=== PATIENT | male | born 1930 | race Caucasian/White ===

== ENCOUNTER 2017-03-30 16:26 | Emergency (ER) | payer MEDICARE, OTHER ==
--- NOTE | 2017-03-30 18:00 | CT Preliminary Report ---
Exam: CT Head W/O IMPRESSION: 1. Stable age-related cortical atrophic changes without evidence of acute intracranial abnormality or skull fracture. 2. Opacified right mastoid air cells noted. [facility] SITE ID: [id number]
--- NOTE | 2017-03-30 18:02 | CT Report ---
EXAM: CT HEAD EXAM DATE: 03/30/2017 05:32 PM. CLINICAL HISTORY: Fall, hitting head on asphalt. Occipital Hematoma. COMPARISON: 09/15/2012. TECHNIQUE: Multiaxial CT images were obtained from the foramen magnum to the vertex. IV contrast: Non e. Reformats: Coronal. In accordance with CT protocol optimization, one or more of the following dose reduction techniques w ere utilized for this exam: automated exposure control, adjustment of mA and/or KV based on patient s ize, or use of iterative reconstructive technique. FINDINGS: Parenchyma: No intraparenchymal hemorrhage. No evidence of mass, midline shift, or CT findings of acu te infarction. Clements-white differentiation is distinct. Extraaxial Spaces: Normal for age. No subdural or epidural collections identified. Ventricles: The ventricles and cortical sulci are prominent, consistent with age-related tissue loss. Sinuses: The right mastoid air cells are opacified. Imaged paranasal sinuses, orbits, and left mastoi ds show no significant abnormality. Bones: No evidence of fracture or calvarial defect. Other: Stable minimal chronic microangiopathic white matter changes are evident. Posterior midline sc alp hematoma noted. IMPRESSION: 1. Stable age-related cortical atrophic changes without evidence of acute intracranial abnormality or skull fracture. 2. Opacified right mastoid air cells noted. [facility] Referring Provider Line: [phone] SITE ID: [id number]
--- NOTE | 2017-03-30 18:19 | ED Physician Documentation ---
PD HPI HEAD INJURY - Stated complaint Stated Complaint: HEAD LAC - Chief complaint Chief Complaint: Laceration - History obtained from History obtained from: Patient - History of Present Illness Mechanism of head injury: Fell Where head injury occurred: Home Timing - onset: Today (just prior to arrival.) Location of injury: Back Associated symptoms: No: LOC, Nausea / vomiting, Neck pain Similar symptoms before: Has not had sx before - Additional information Additional information: The patient is a pleasant 86-year-old male who presents with closed head injury. He was pulling on a vine that had wrapped around the branch of a tree at his home when the branch broke off and he fell backwards, striking his head on pavement. He denies loss of consciousness, but he has noticed swelling of his occipital scalp and has had associated bleeding. He denies nausea or vomiting, and he denies neck pain. He has been ambulatory since the incident occurred. His tetanus status is up-to-date. Review of Systems Constitutional: denies: Fever, Fatigue Eyes: denies: Decreased vision Ears: denies: Tinnitus/ringing Nose: denies: Congestion Throat: denies: Sore throat Cardiac: denies: Chest pain / pressure Respiratory: denies: Dyspnea, Cough GI: denies: Abdominal Pain, Nausea, Vomiting : denies: Dysuria Skin: reports: Other (Occipital scalp wound). denies: Rash Musculoskeletal: denies: Neck pain, Back pain Neurologic: reports: Head injury. denies: Focal weakness, Numbness, Altered mental status, Headache, LOC PD PAST MEDICAL HISTORY - Past Medical History Respiratory: None Neuro: None Endocrine/Autoimmune: None - Allergies Allergies/Adverse Reactions: Allergies Allergy/AdvReac Type Severity Reaction Status Date / Time No Known Drug Allergies Allergy Verified 03/30/17 16:40 - Living Situation Living Situation: reports: With spouse/s.o. Living Arrangement: reports: At home - Social History Does the pt smoke?: No - Immunizations Immunizations are current?: Yes Immunizations: TDAP current <10years PD ED PE NORMAL - Vitals Vital signs reviewed: Yes (Initially hypertensive.) - General General: Alert and oriented X 3, Well developed/nourished - HEENT HEENT: PERRL, EOMI, Pharynx benign, Other (Large occipital scalp hematoma with deep abrasion. There is no bony step-off palpated.) - Neck Neck: Supple, no meningeal sign, No bony TTP, No adenopathy, Other (Full cervical range of motion, without tenderness.) - Cardiac Cardiac: RRR, No murmur (1/6 systolic murmur.) - Respiratory Respiratory: No respiratory distress, Clear bilaterally, Other (No chest wall tenderness to palpation.) - Abdomen Abdomen: Soft, Non tender - Back Back: No spinal TTP - Derm Derm: No rash - Neuro Neuro: Alert and oriented X 3, No motor deficit, No sensory deficit, Normal speech Results - Vitals Vitals: Oxygen O2 Source Room air - Rads (name of study) Head CT Radiology: Prelim report reviewed, EMP read contemporaneously, See rad report ( Stable age-related cortical atrophic changes without evidence of acute intracranial abnormality or skull fracture. Opacified right mastoid air cells noted.) PD MEDICAL DECISION MAKING - ED course Complexity details: reviewed results, re-evaluated patient, considered differential, d/w patient, d/w family ED course: The patient's presentation is significant for fall with closed head injury, with occipital scalp hematoma and scalp abrasion. Head CT without contrast reveals no intracranial abnormality or skull fracture. Treatment in the emergency department included application of antibiotic ointment and wound dressing. I discussed with the patient and his the expected course of healing, symptomatic treatment and outpatient follow-up, as well as potentially worrisome signs or symptoms that should prompt reevaluation in the emergency department. Departure - Departure Disposition: 01 Home, Self Care Clinical Impression: Scalp hematoma Qualifiers: Encounter type: initial encounter Qualified Code(s): S00.03XA - Contusion of scalp, initial encounter Condition: Stable Instructions: ED Contusion Scalp, ED Hematoma Follow-Up: Danie Morrow MD [Provider Admit Priv/Credential] - Comments: Keep the wound clean, and apply antibiotic ointment daily. You can use Tylenol or ibuprofen if needed for discomfort. Follow-up with your primary physician, or return to the emergency department, if you develop increasing headache, persistent vomiting, or otherwise worsening symptoms. Discharge Date/Time: 03/30/17 18:30
[2017-03-30] MEDS ORDERED: BACITRACIN OINT TOP STA (18:21)
[2017-03-30] MEDS ORDERED: BACITRACIN OINT TOP ONE (18:23)
[2017-03-30 18:38] VITALS: BP 134/71
== END 2017-03-30 18:30 | disposition home or self-care (01) ==
LOC: ED 16:26
DX: S00.03XA Contusion of scalp, initial encounter (principal); W01.0XXA Fall on same level from slipping, tripping and stumbling without subsequent striking against object, initial encounter; Y92.019 Unspecified place in single-family (private) house as the place of occurrence of the external cause
CPT/HCPCS: 70450; 99283; A9270

== ENCOUNTER 2017-05-13 14:17 | Outpatient (CLI) | payer MEDICARE, OTHER ==
[2017-05-13 13:28] LABS: IRON 38 ug/dL (45-182); TOTAL IRON BINDING CAPACITY 302 ug/dL (250-450); TRANSFERRIN 216 mg/dL (180-329)
[2017-05-13 14:08] LABS: FERRITIN 210.9 ng/mL (23.9-336.2)
== END 2017-05-13 14:18 | disposition home or self-care (01) ==
LOC: LAB.WCP 14:17
PROVIDERS: ATTEND Family Medicine
DX: D64.89 Other specified anemias (principal); N18.4 Chronic kidney disease, stage 4 (severe)
CPT/HCPCS: 36415; 82607; 82728; 82746; 83540; 84466

== ENCOUNTER 2017-05-22 09:10 | Outpatient (CLI) | payer MEDICARE, OTHER ==
[2017-05-22 14:14] LABS: CALCIUM 8.9 mg/dL (8.5-10.3)
== END 2017-05-22 09:11 | disposition home or self-care (01) ==
LOC: LAB.WCP 09:10
PROVIDERS: ATTEND Internal Medicine Nephrology
DX: N05.9 Unspecified nephritic syndrome with unspecified morphologic changes (principal)
CPT/HCPCS: 36415; 80048

== ENCOUNTER 2017-09-12 15:49 | Outpatient (CLI) | payer MEDICARE, OTHER | END 2017-09-12 15:50 | disposition critical access hospital (66) | LOC: EMS 15:49 | PROVIDERS: ATTEND Surgery | DX: R53.1 Weakness (principal) | CPT/HCPCS: A0425; A0429 ==

== ENCOUNTER 2017-09-12 16:17 | Observation (INO) | payer MEDICARE, OTHER ==
[2017-09-12] MEDS ORDERED: SODIUM CHLORIDE 0.9% 1,000 ML IV ONE (16:25)
--- NOTE | 2017-09-12 16:27 | ED Physician Documentation ---
History of Present Illness - Stated complaint Stated Complaint: WEAKNESS - Chief complaint Chief Complaint: General - History obtained from History obtained from: Patient, EMS - History of Present Illness Timing: Other (87-year-old gentleman brought in by ambulance from home. He says he been weak for a couple of weeks, but now acutely has fevers, chills, dry cough, body aches and urinary incontinence. He has a history of aortic aneurysm repair, looking at the chart it looks like he had a recurrence but per his history he says he was not an operative candidate for a redo. He also has hypercholesterolemia.) Review of Systems Constitutional: reports: Fever, Chills, Myalgias, Fatigue Ears: denies: Ear pain Nose: reports: Rhinorrhea / runny nose Throat: denies: Sore throat Cardiac: denies: Chest pain / pressure, Palpitations Respiratory: reports: Cough. denies: Dyspnea GI: denies: Abdominal Pain, Nausea, Vomiting, Diarrhea : reports: Incontinent. denies: Dysuria PD PAST MEDICAL HISTORY - Past Medical History Respiratory: None Neuro: None Endocrine/Autoimmune: None - Present Medications Home Medications: Ambulatory Orders Medication Instructions Recorded Confirmed Rosuvastatin Calcium [Crestor] 09/12/17 - Allergies Allergies/Adverse Reactions: Allergies Allergy/AdvReac Type Severity Reaction Status Date / Time No Known Drug Allergies Allergy Verified 09/12/17 16:34 - Social History Does the pt smoke?: No - Immunizations Immunizations are current?: Yes Immunizations: TDAP current <10years PD ED PE NORMAL - Vitals Vital signs reviewed: Yes (febrile) - General General: No acute distress, Well developed/nourished, Other (Alert and pleasant and a decent historian but says the year is 1917.) - HEENT HEENT: PERRL, EOMI - Neck Neck: Supple, no meningeal sign, No bony TTP - Cardiac Cardiac: RRR, Other (4 out of 6 decrescendo systolic murmur) - Respiratory Respiratory: No respiratory distress, Clear bilaterally - Abdomen Abdomen: Non tender (With a pulsatile abdominal mass in the epigastrium) - Back Back: No CVA TTP, No spinal TTP - Derm Derm: Normal color, Warm and dry - Extremities Extremities: No edema, No calf tenderness / cord - 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, Normal speech Eye Opening: Spontaneous Motor: Obeys Commands - Psych Psych: Normal mood, Normal affect Results - Vitals Vitals: Vital Signs - 24 hr 09/12/17 16:18 Temperature 38.9 C H Heart Rate 83 Respiratory 20 Rate Blood Pressure 206/80 H O2 Saturation 95 Oxygen O2 Source Room air - Labs Labs: Laboratory Tests 09/12/17 09/12/17 09/12/17 16:20 17:20 17:22 WBC 4.8 RBC 3.05 L Hgb 9.5 L Hct 28.5 L MCV 93.3 MCH 31.1 H MCHC 33.3 RDW 13.7 Plt Count 101 L MPV 9.0 Neut # 3.6 Lymph # 0.8 L [place] # 0.3 Eos # 0.0 Baso # 0.0 Absolute Nucleated RBC 0.00 Nucleated RBC % 0.0 PT INR Sodium Potassium Chloride Carbon Dioxide Anion Gap BUN Creatinine Estimated GFR (MDRD) Glucose Lactic Acid Calcium Total Bilirubin AST ALT Alkaline Phosphatase Total Protein Albumin Globulin Albumin/Globulin Ratio Lipase Urine Color LT. YELLOW Urine Clarity HAZY Urine pH 7.0 Ur Specific [place] 1.020 Urine Protein >=300 Urine Glucose (UA) NEGATIVE Urine Ketones NEGATIVE Urine Occult Blood LARGE H Urine Nitrite NEGATIVE Urine Bilirubin NEGATIVE Urine Urobilinogen 0.2 (NORMAL) Ur Leukocyte Esterase NEGATIVE Urine RBC 11-25 H Urine WBC 0-3 Ur Squamous Epith Cells NONE SEEN Urine Bacteria None Seen Ur Microscopic Review INDICATED Urine Culture Comments NOT INDICATED Influenza A (Rapid) Negative Influenza B (Rapid) Negative Influenza Types A,B Ag - 09/12/17 09/12/17 09/12/17 17:22 17:22 17:22 WBC RBC Hgb Hct MCV MCH MCHC RDW Plt Count MPV Neut # Lymph # [place] # Eos # Baso # Absolute Nucleated RBC Nucleated RBC % PT 11.7 INR 1.0 Sodium 134 L Potassium 5.3 H Chloride 106 Carbon Dioxide 17 L Anion Gap 11.0 BUN 47 H Creatinine 4.2 H Estimated GFR (MDRD) 14 L Glucose 98 Lactic Acid 0.7 Calcium 8.8 Total Bilirubin 0.4 AST 24 ALT 12 Alkaline Phosphatase 51 Total Protein 7.3 Albumin 4.2 Globulin 3.1 Albumin/Globulin Ratio 1.4 Lipase 56 H Urine Color Urine Clarity Urine pH Ur Specific [place] Urine Protein Urine Glucose (UA) Urine Ketones Urine Occult Blood Urine Nitrite Urine Bilirubin Urine Urobilinogen Ur Leukocyte Esterase Urine RBC Urine WBC Ur Squamous Epith Cells Urine Bacteria Ur Microscopic Review Urine Culture Comments Influenza A (Rapid) Influenza B (Rapid) Influenza Types A,B Ag - Rads (name of study) 2v chest Radiology: EMP read contemporaneously (NAD) PD MEDICAL DECISION MAKING - ED course ED course: 87-year-old gentleman presents with weakness and fever without a source, he has urinary incontinence and some viral symptoms but his flu swab is negative and his chest x-ray is clear and his urine shows only blood. Given his advanced age, mild acidosis and other comorbidities including chronic renal insufficiency he will be observed. Spoke with Dr. Molina for observation at 5:55 PM, we agree no antibiotics now given he does not seem to be septic. Departure - Departure Disposition: ED Place in Observation Clinical Impression: Fever Qualifiers: Fever type: due to other condition Qualified Code(s): R50.81 - Fever presenting with conditions classified elsewhere Hypertension Qualifiers: Hypertension type: essential hypertension Qualified Code(s): I10 - Essential ( primary) hypertension Condition: Stable
[2017-09-12 16:56] LABS: BILIRUBIN,URINE NEGATIVE (NEGATIVE); GLUCOSE, URINE (UA) NEGATIVE (NEGATIVE); KETONES,URINE (UA) NEGATIVE (NEGATIVE); LEUKOCYTE ESTERASE, URINE NEGATIVE (NEGATIVE); NITRITE,URINE NEGATIVE (NEGATIVE); OCCULT BLOOD,URINE LARGE (NEGATIVE); PROTEIN,URINE >=300 mg/dL (NEGATIVE); UROBILINOGEN,URINE 0.2 (NORMAL) E.U./dL (NORMAL)
[2017-09-12 17:01] LABS: CLARITY,URINE HAZY (CLEAR)
[2017-09-12 17:12] LABS: BACTERIA,URINE None Seen /HPF (None Seen); SQUAMOUS EPITHELIAL CELL,UR NONE SEEN (<= Few)
--- NOTE | 2017-09-12 17:20 | XRAY Report ---
EXAM: CHEST RADIOGRAPHY EXAM DATE: 09/12/2017 04:56 PM. CLINICAL HISTORY: Fever cough. COMPARISON: 09/15/2012. TECHNIQUE: 2 views. FINDINGS: Lungs/Pleura: Unchanged linear right base opacities likely reflect atelectasis or scarring. Left lung is clear. Persistent left basal pleural thickening. No pneumothorax. Mediastinum: Normal heart size and mediastinum. Tortuous thoracic aorta with atheromatous calcificati on. Other: None. IMPRESSION: 1. No radiographic evidence for acute cardiopulmonary process. [facility] Referring Provider Line: [phone] SITE ID: [id number]
[2017-09-12 17:36] LABS: BASOPHILS % (AUTO) 0.7 %; EOSINOPHILS % (AUTO) 0.1 %; HGB - HEMOGLOBIN 9.5 g/dL (14.0-18.0); LYMPHOCYTES # (AUTO) 0.8 10^3/uL (1.5-3.5); LYMPHOCYTES % (AUTO) 16.8 %; MEAN CORPUSCULAR HEMOGLOBIN 31.1 pg (27.0-31.0); MEAN CORPUSCULAR HGB CONC 33.3 g/dL (32.0-36.0); MEAN CORPUSCULAR VOLUME 93.3 fL (80.0-94.0); MONOCYTES # (AUTO) 0.3 10^3/uL (0.0-1.0); MONOCYTES % (AUTO) 6.5 %; NEUTROPHILS # (AUTO) 3.6 10^3/uL (1.5-6.6); NEUTROPHILS % (AUTO) 75.9 %; PLT - PLATELET COUNT 101 10^3/uL (130-450); RED BLOOD COUNT 3.05 10^6/uL (4.70-6.10); RED CELL DISTRIBUTION WIDTH 13.7 % (12.0-15.0); WHITE BLOOD COUNT 4.8 x10^3/uL (4.8-10.8)
[2017-09-12 17:42] LABS: PT - PROTHROMBIN TIME 11.7 secs (9.9-12.6)
[2017-09-12 17:50] LABS: ALBUMIN 4.2 g/dL (3.2-5.5); ALBUMIN/GLOBULIN RATIO 1.4 (1.0-2.2); BILIRUBIN,TOTAL 0.4 mg/dL (0.2-1.0); CALCIUM 8.8 mg/dL (8.5-10.3); CREATININE 4.2 mg/dL (0.6-1.2); TOTAL PROTEIN 7.3 g/dL (6.7-8.2)
[2017-09-12] MEDS ORDERED: SODIUM CHLORIDE FLUSH 0.9% 10 ML SYRINGE IVP PRN (19:37)
[2017-09-12] MEDS ORDERED: PROCHLORPERAZINE 10 MG/2 ML VIAL IVP PRN (19:37)
[2017-09-12] MEDS ORDERED: oxyCODONE 5 MG TABLET PO PRN ×2 (19:37→20:03)
[2017-09-12] MEDS ORDERED: TEMAZEPAM 15 MG CAPSULE PO PRN (19:37)
[2017-09-12] MEDS: D5.45NS W/20 MEQ KCL 1,000 ML IV SCH (20:53)
[2017-09-12] MEDS: SODIUM CHLORIDE FLUSH 0.9% 10 ML SYRINGE IVP SCH (20:54)
--- NOTE | 2017-09-12 23:36 | HISTORY & PHYSICAL EXAMINATION ---
Chief Complaint - Chief Complaint Chief Complaint: Weakness and fever History of Present Illness - Admitted From Admitted From:: Home - History Obtained From History obtained from: Patient and - History of Present Illness HPI Comment/Other: Mr. Aknur Mchugh is a pleasant 87-year-old gentleman with a history of weakness and fever for the last 2-3 days. He has a past medical history significant for hypercholesterolemia, hypertension, and an abdominal aortic aneurysm repair approximately 15 years ago. He reportedly has issues with the repair but is unable to undergo surgical correction. He is currently too weak to ambulate independently which is unusual for him and will be admitted to an observation bed and rehydrated. History - Past Medical History Cardiovascular: reports: Hypertension, High cholesterol Respiratory: reports: None Neuro: reports: None Endocrine/Autoimmune: reports: None GI: reports: None : reports: Incontinence HEENT: reports: None Psych: reports: None Musculoskeletal: reports: None Derm: reports: None Other Past Medical History: AAA - Family & Social History Family History: Mother: , Alzheimer's Disease, Father: , CAD, Hyperlipidemia, Hypertension, Sister: Alive and Well, Brother: , Cancer Living arrangement: At home Living Situation: With spouse/s.o. - Substance History Use: Uses substance without health or social issues: NONE - POLST Patient has POLST: No POLST Status: DNR Meds/Allgy - Home Medications Home Medications: Ambulatory Orders Medication Instructions Recorded Confirmed Rosuvastatin Calcium [Crestor] 09/12/17 - Allergies Allergies/Adverse Reactions: Allergies Allergy/AdvReac Type Severity Reaction Status Date / Time No Known Drug Allergies Allergy Verified 09/12/17 16:34 Review of Systems - Constitutional Constitutional: reports: Fatigue, Weakness, Poor appetite. denies: Fever - Eyes Eyes: denies: Pain, Irritation, Blurred vision, Vision loss, Dipolpia - Ears, Nose & Throat Ears, Nose & Throat: denies: Ear pain, Hearing loss, Hearing aids, Tinnitus, Vertigo, Nasal pain, Nasal discharge, Nosebleeds - Cardiovascular Cariovascular: denies: Irregular heart rate, Palpitations, Chest pain, Edema - Respiratory Respiratory: reports: Cough, SOB at rest, SOB with exertion. denies: Sputum production, Wheezing, Hemoptysis, Orthopnea - Gastrointestinal Gastrointestinal: denies: Abdominal pain, Abdominal distention, Constipation, Diarrhea, Change in bowel habits, Rectal bleeding - Genitourinary Genitourinary: denies: Dysuria, Frequency, Urgency, Hematuria - Musculoskeletal Musculoskeletal: denies: Muscle pain, Back pain, Muscle aches, Stiffness - Integumentary Integumentary: denies: Rash, Pruritis, Lesions, Dryness - Neurological Neurological: denies: General weakness, Focal weakness, Headache, Dizziness - Psychiatric Psychiatric: denies: Depression, Anxiety, Suicidal, Hallucinations - Endocrine Endocrine: denies: Polyuria, Polydypsia, Polyphagia - Hematologic/Lymphatic Hematologic/Lymphatic: denies: Anemia, Bruising, Blood clots, Lymphadenopathy - All Other Systems All Other Systems: reports: Reviewed and negative Exam - Vital Signs Reviewed Vital Signs: Yes Vital Signs: Vital Signs x48h Temp Pulse Pulse Resp BP BP Pulse Ox 09/12/17 20:11 37.9 C H 81 166/70 H 95 09/12/17 19:49 38.0 C H 83 15 162/71 H 96 - Physical Exam General Appearance: positive: No acute distress, Alert Eyes Bilateral: positive: Normal inspection, PERRL, EOMI ENT: positive: ENT inspection nml, Pharynx nml. negative: Oral lesions Neck: positive: Nml inspection, Thyroid nml, No JVD, Trachea midline. negative : Thyromegaly Respiratory: positive: Chest non-tender, No respiratory distress, Breath sounds nml. negative: Wheezes, Rales, Rhonchi Cardiovascular: positive: Regular rate & rhythm, No gallop, Systolic murmur (3/6 ). negative: Extrasystoles Peripheral Pulses: positive: 1+ Abdomen: positive: Non-tender, No organomegaly, Nml bowel sounds, No distention Back: positive: Nml inspection. negative: CVA tenderness (R), CVA tenderness (L ) Skin: positive: Color nml, No rash, Warm, Dry. negative: Cyanosis Extremities: positive: Non-tender, Full ROM, Nml appearance Neurologic/Psychiatric: positive: Oriented x3, CN's nml (2-12), Motor nml, Sensation nml, Mood/affect nml Conclusion/Plan - Problem List (1) Fever Conclusion/Plan: Likely viral etiology, the patient also appears to be slightly dehydrated. We will rehydrate him and monitor him overnight, and anticipate his discharge sometime tomorrow morning. We will address any other issues as they arise. Qualifiers: Fever type: due to other condition Qualified Code(s): R50.81 - Fever presenting with conditions classified elsewhere (2) Dyspnea on exertion Conclusion/Plan: Likely another part of a viral syndrome that the patient appears to be struggling with at this time. We will continue to monitor and continue the patient on supplemental oxygen and nebulizer treatments as needed. - Lab Results Lab results reviewed: Yes Fish Bones: 09/12/17 17:22 09/12/17 17:22 - Diagnostic Imaging Results Diagnostic Imaging Results: positive: Final report reviewed Diagnostic Imaging Results Comments: EXAM: CHEST RADIOGRAPHY EXAM DATE: 09/12/2017 04:56 PM. CLINICAL HISTORY: Fever cough. COMPARISON: 09/15/2012. TECHNIQUE: 2 views. FINDINGS: Lungs/Pleura: Unchanged linear right base opacities likely reflect atelectasis or scarring. Left lung is clear. Persistent left basal pleural thickening. No pneumothorax. Mediastinum: Normal heart size and mediastinum. Tortuous thoracic aorta with atheromatous calcification. Other: None. IMPRESSION: 1. No radiographic evidence for acute cardiopulmonary process. Core Measures - Anticipated LOS I expect patient to be DC'd or transferred within 96 hours.: Yes - DVT/VTE - Prophylaxis VTE/DVT Device ordered at admit?: Yes
[2017-09-13] MEDS: SODIUM CHLORIDE FLUSH 0.9% 10 ML SYRINGE IVP SCH ×2 (05:15→13:22)
[2017-09-13] MEDS: D5.45NS W/20 MEQ KCL 1,000 ML IV SCH (07:01)
[2017-09-13] MEDS ORDERED: POLYETHYLENE GLYCOL 3350 17 GM PACKET PO SCH (09:00)
[2017-09-13] MEDS ORDERED: ASPIRIN EC 81 MG TABLET PO SCH (11:00)
[2017-09-13] MEDS ORDERED: METOPROLOL TARTRATE 25 MG TABLET PO SCH (11:00)
[2017-09-13] MEDS ORDERED: FERROUS SULFATE 325 MG TABLET PO SCH (11:00)
[2017-09-13 11:48] LABS: BASOPHILS % (AUTO) 0.5 %; EOSINOPHILS % (AUTO) 0.3 %; HGB - HEMOGLOBIN 8.7 g/dL (14.0-18.0); LYMPHOCYTES # (AUTO) 0.9 10^3/uL (1.5-3.5); MEAN CORPUSCULAR HGB CONC 33.7 g/dL (32.0-36.0); MEAN CORPUSCULAR VOLUME 92.2 fL (80.0-94.0); MONOCYTES # (AUTO) 0.4 10^3/uL (0.0-1.0); MONOCYTES % (AUTO) 11.5 %; NEUTROPHILS # (AUTO) 1.9 10^3/uL (1.5-6.6); NEUTROPHILS % (AUTO) 58.7 %; PLT - PLATELET COUNT 87 10^3/uL (130-450); RED BLOOD COUNT 2.81 10^6/uL (4.70-6.10); RED CELL DISTRIBUTION WIDTH 13.5 % (12.0-15.0); WHITE BLOOD COUNT 3.2 x10^3/uL (4.8-10.8)
[2017-09-13 12:02] LABS: ALBUMIN 3.3 g/dL (3.2-5.5); ALBUMIN/GLOBULIN RATIO 1.3 (1.0-2.2); BILIRUBIN,TOTAL 0.4 mg/dL (0.2-1.0); CALCIUM 8.2 mg/dL (8.5-10.3); CREATININE 3.9 mg/dL (0.6-1.2); TOTAL PROTEIN 5.9 g/dL (6.7-8.2)
[2017-09-13 12:35] LABS: % IRON SATURATION 6 % (20-50); IRON 13 ug/dL (45-182); TOTAL IRON BINDING CAPACITY 220 ug/dL (250-450); TRANSFERRIN 157 mg/dL (180-329)
--- NOTE | 2017-09-13 15:32 | Discharge Plan ---
Discharge Plan Disposition: 01 Home, Self Care Condition: Good Diet: Regular Activity Restrictions: No Restrictions Shower Restrictions: No Driving Restrictions: No Weight Bearing: Full Weight Additional Instructions or Follow Up instructions: You came in after falling at home. You also had a fever, which cannot be explained after further labs and testing was completed. You were given IV fluids, an echocardiogram test which looked similar to your previous one, and there were no medication changes. Your kidney function was stable from previous values, but we found some blood in your urine after checking a urine test. You should follow up with your PCP within one week. No Smoking: If you smoke, Please STOP! Call for help.
--- NOTE | 2017-09-13 15:38 | DISCHARGE SUMMARY ---
Discharge Summary Admit Date: 09/12/17 Discharge Date: 09/13/17 Discharging Provider: AIYANA Khan Primary Care Provider: Danie Morrow Code Status: Do Not Attempt Resuscitation Condition at Discharge: Good Discharge Disposition: 01 Home, Self Care - DIAGNOSES Admission Diagnoses: Fever, unspecified (R50.9) Other forms of dyspnea (R06.09) Discharge Diagnoses with Status of Each Condition: Fever (R50.9) resolved. 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 Iron (Fe) deficiency anemia (D50.9) chronic stable. Dyspnea on exertion (R06.09) ongoing, stable. Fall at home (W19.XXXA) resolved, precautions given. - HPI History of Present Illness: Mr. Ankur Mchugh is a pleasant 87-year-old gentleman with a history of weakness and fever for the last 2-3 days. He has a past medical history significant for hypercholesterolemia, hypertension, and an abdominal aortic aneurysm repair approximately 15 years ago. He reportedly has issues with the repair but is unable to undergo surgical correction. He is currently too weak to ambulate independently which is unusual for him and will be admitted to an observation bed, treated for dehydration, and further work up of syncope. - HOSPITAL COURSE Hospital Course: Patient had a non-eventful night, and woke up without symptoms. He was monitored on telemetry which showed sinus rhythm-callie in the 50-60's. An echocardiogram was obtained and showed a normal left ventricle with an EF of 65% , mild aortic sclerosis, mildly dilated ascending aorta, 4.4 cm, 4.6 cm AAA noted. Patient was anxious about getting home and promised to seek further medical attention or contact his PCP in the event he has more, similar symptoms. He was discharged in stable condition home with , via private car without changes to medications, and without oxygen needs. - ALLERGIES Allergies/Adverse Reactions: Allergies Allergy/AdvReac Type Severity Reaction Status Date / Time No Known Drug Allergies Allergy Verified 09/12/17 16:34 - MEDICATIONS Home Medications: Ambulatory Orders Medication Instructions Recorded Confirmed Aspirin [Aspirin EC] 81 mg PO DAILY 09/13/17 09/13/17 Doxazosin [Cardura] 2 mg PO QPM 09/13/17 09/13/17 Ferrous Sulfate 650 mg PO DAILY 09/13/17 09/13/17 Metoprolol Tartrate 12.5 mg PO BID 09/13/17 09/13/17 Rosuvastatin Calcium [Crestor] 40 mg PO QPM 09/13/17 09/13/17 amLODIPine [Norvasc] 10 mg PO DAILY 09/13/17 09/13/17 - PHYSICAL EXAM AT DISCHARGE General Appearance: positive: No acute distress, Alert Eyes Bilateral: positive: Normal inspection, PERRL ENT: positive: ENT inspection nml, Pharynx nml, No signs of dehydration Neck: positive: Nml inspection, Thyroid nml, No JVD, Stiff neck Respiratory: positive: Chest non-tender, No respiratory distress, Other ( crackles) Cardiovascular: positive: No gallop, Irregularly irregular, Bradycardia, Decreased pulse(s) Peripheral Pulses: positive: 1+ Abdomen: positive: Non-tender, No organomegaly, Nml bowel sounds, No distention Back: positive: Nml inspection Skin: positive: No rash, Warm, Dry Extremities: positive: Non-tender, Full ROM, Nml appearance, No pedal edema Neurologic/Psychiatric: positive: Oriented x3, Weakness, Sensory loss, Depressed mood/affect, Other (mild dementia) Reflexes: Bicep (R): 2+, Bicep (L): 2+ - LABS Result Diagrams: 09/13/17 11:23 09/13/17 11:23 - DIAGNOSTIC IMAGING Diagnostic Imaging Results: Final report reviewed Diagnostic Imaging Results Comments: EXAM: CHEST RADIOGRAPHY EXAM DATE: 09/12/2017 04:56 PM. CLINICAL HISTORY: Fever cough. COMPARISON: 09/15/2012. TECHNIQUE: 2 views. FINDINGS: Lungs/Pleura: Unchanged linear right base opacities likely reflect atelectasis or scarring. Left lung is clear. Persistent left basal pleural thickening. No pneumothorax. Mediastinum: Normal heart size and mediastinum. Tortuous thoracic aorta with atheromatous calcification. IMPRESSION: 1. No radiographic evidence for acute cardiopulmonary process. - FOLLOW UP Follow Up: Disposition: 01 Home, Self Care Condition: Good Diet: Regular Activity Restrictions: No Restrictions Shower Restrictions: No Driving Restrictions: No Weight Bearing: Full Weight Additional Instructions or Follow Up instructions: You came in after falling at home. You also had a fever, which cannot be explained after further labs and testing was completed. You were given IV fluids, an echocardiogram test which looked similar to your previous one, and there were no medication changes. Your kidney function was stable from previous values, but we found some blood in your urine after checking a urine test. You should follow up with your PCP within one week. - TIME SPENT Time Spent in Discharge (Minutes): 60
[2017-09-13 15:57] VITALS: BP 135/66
[2017-09-13] MEDS ORDERED: DOXAZOSIN 1 MG TABLET PO SCH (21:00)
== END 2017-09-13 16:00 | disposition home or self-care (01) ==
LOC: ED 16:17 → OBS 19:37
PROVIDERS: ADMIT Hospitalist; ATTEND Nurse Practitioner
DX: R50.9 Fever, unspecified (principal); I12.9 Hypertensive chronic kidney disease with stage 1 through stage 4 chronic kidney disease, or unspecified chronic kidney disease; N18.4 Chronic kidney disease, stage 4 (severe); D50.9 Iron deficiency anemia, unspecified; E87.2 Acidosis; R31.29 Other microscopic hematuria; R32 Unspecified urinary incontinence; R53.1 Weakness; R06.02 Shortness of breath; E78.00 Pure hypercholesterolemia, unspecified; I71.4 Abdominal aortic aneurysm, without rupture; Z66 Do not resuscitate
CPT/HCPCS: 36415; 71046; 80053; 81001; 82607; 83540; 83605; 83690; 83880; 84443; 84466; 84484; 85025; 85610; 87040; 87275; 87276; 93306; 96360; 96361; 99284; A9270; G0378; 81003; 87086; 99283

== ENCOUNTER 2017-09-23 10:58 | Outpatient (CLI) | payer MEDICARE, OTHER ==
[2017-09-23 13:13] LABS: BASOPHILS % (AUTO) 0.3 %; EOSINOPHILS # (AUTO) 0.1 10^3/uL (0.0-0.7); EOSINOPHILS % (AUTO) 1.5 %; HGB - HEMOGLOBIN 9.1 g/dL (14.0-18.0); LYMPHOCYTES # (AUTO) 1.3 10^3/uL (1.5-3.5); LYMPHOCYTES % (AUTO) 29.9 %; MEAN CORPUSCULAR HEMOGLOBIN 31.6 pg (27.0-31.0); MEAN CORPUSCULAR HGB CONC 34.5 g/dL (32.0-36.0); MEAN CORPUSCULAR VOLUME 91.5 fL (80.0-94.0); MEAN PLATELET VOLUME 8.4 fL (7.4-11.4); MONOCYTES # (AUTO) 0.3 10^3/uL (0.0-1.0); MONOCYTES % (AUTO) 5.7 %; NEUTROPHILS # (AUTO) 2.8 10^3/uL (1.5-6.6); NEUTROPHILS % (AUTO) 62.6 %; PLT - PLATELET COUNT 172 10^3/uL (130-450); RED BLOOD COUNT 2.87 10^6/uL (4.70-6.10); RED CELL DISTRIBUTION WIDTH 12.9 % (12.0-15.0); WHITE BLOOD COUNT 4.5 x10^3/uL (4.8-10.8)
[2017-09-23 14:02] LABS: ALBUMIN 3.7 g/dL (3.2-5.5); ALBUMIN/GLOBULIN RATIO 1.2 (1.0-2.2); BILIRUBIN,TOTAL 0.5 mg/dL (0.2-1.0); CALCIUM 8.4 mg/dL (8.5-10.3); CREATININE 4.1 mg/dL (0.6-1.2); TOTAL PROTEIN 6.7 g/dL (6.7-8.2)
== END 2017-09-23 10:59 | disposition home or self-care (01) ==
LOC: LAB.WCP 10:58
PROVIDERS: ATTEND Family Medicine
DX: D64.89 Other specified anemias (principal); N18.4 Chronic kidney disease, stage 4 (severe); I95.1 Orthostatic hypotension
CPT/HCPCS: 36415; 80053; 82728; 83540; 84466; 85025; 86850; 86900; 86901

== ENCOUNTER 2018-01-11 14:06 | Emergency (ER) | payer MEDICARE, OTHER ==
--- NOTE | 2018-01-11 15:26 | ED Physician Documentation ---
History of Present Illness - Stated complaint Stated Complaint: ARM SWELLING/POST SURGERY - Chief complaint Chief Complaint: Ext Problem - History obtained from History obtained from: Patient - History of Present Illness Timing: How many days ago (5) Pain level max: 0 Pain level now: 0 Improved by: nothing Worsened by: nothing - Additonal information Additional information: Patient is an 87-year-old gentleman who presents to the emergency department with left arm swelling approximately 5 days status post a left AV fistula placement. He states occasionally has slight tingling to the left pinky, but otherwise has normal sensation in the hand. Is using the hand without difficulty. No pain. Has not been elevating the arm. States that he did receive an Garcia wrap but took this off. No fevers. No vomiting. Review of Systems Constitutional: denies: Fever, Chills Neurologic: denies: Focal weakness PD PAST MEDICAL HISTORY - Past Medical History Past Medical History: Yes Cardiovascular: Hypertension, High cholesterol Respiratory: None Endocrine/Autoimmune: None GI: None : Incontinence, Renal insuffiency HEENT: None Psych: None Musculoskeletal: None Derm: None - Past Surgical History Past Surgical History: Yes - Present Medications Home Medications: Ambulatory Orders Medication Instructions Recorded Confirmed Aspirin [Aspirin EC] 81 mg PO DAILY 09/13/17 01/11/18 Ferrous Sulfate 650 mg PO DAILY 09/13/17 01/11/18 Metoprolol Tartrate 12.5 mg PO BID 09/13/17 01/11/18 Rosuvastatin Calcium [Crestor] 40 mg PO QPM 09/13/17 01/11/18 amLODIPine [Norvasc] 10 mg PO DAILY 09/13/17 01/11/18 - Allergies Allergies/Adverse Reactions: Allergies Allergy/AdvReac Type Severity Reaction Status Date / Time No Known Drug Allergies Allergy Verified 01/11/18 14:33 - Social History Does the pt smoke?: No Smoking Status: Never smoker Does the pt drink ETOH?: No Does the pt have substance abuse?: No - Immunizations Immunizations are current?: Yes Immunizations: TDAP current <10years - POLST Patient has POLST: No POLST Status: DNR PD ED PE NORMAL - Vitals Vital signs reviewed: Yes - General General: Alert and oriented X 3, No acute distress - HEENT HEENT: Moist mucous membranes - Cardiac Cardiac: RRR - Respiratory Respiratory: No respiratory distress, Clear bilaterally - Derm Derm: Warm and dry - Extremities Extremities: Other (Diffusely edematous left upper extremity. There is ecchymosis going down the arm and pulling on the dorsum of the hand. Neurovascularly intact. Palpable thrill over the AV fistula site. Normal oxygenation to all fingertips via pulse oximetry. Normal radial artery pulse and ulnar artery pulse on Doppler. Pitting edema to the arm. No drainage. No erythema) - Neuro Neuro: Alert and oriented X 3 Results - Vitals Vitals: Oxygen O2 Source Room air PD MEDICAL DECISION MAKING - ED course Complexity details: considered differential, d/w patient, d/w otm consultant ([id number] - TERRIE Sanchez (vascular at [facility]) and recommends light compression with GARCIA, elevate and follow up in office tomorrow. ) ED course: Patient is an 87-year-old gentleman with what appears to be postoperative edema of the left upper extremity. This is wrapped lightly with an Garcia wrap after discussion with vascular surgery. Also told to elevate the arm while he is at home tonight and to follow-up closely with his vascular surgeon tomorrow. Does not appear infected at this time. No pain. No numbness other than intermittent numbness to the left pinky, not present at this time. No evidence of compartment syndrome. Neurovascularly intact. Patient counseled regarding signs and symptoms for which I believe and urgent re-evaluation would be necessary. Patient with good understanding of and agreement to plan and is comfortable going home at this time This document was made in part using voice recognition software. While efforts are made to proofread this document, sound alike and grammatical errors may occur. Departure - Departure Disposition: 01 Home, Self Care Clinical Impression: Peripheral edema Condition: Good Instructions: ED Wound Check Post Op No Infec Follow-Up: Ricky Holt MD [Physician No Access] - Tomorrow Comments: continue to elevate your arm as much as possible today. Follow up with Dr. Layla Holt tomorrow. Call the clinic for an appointment. I spoke with TERRIE Sanchez today. Return immediately for pain, fever, or unable to use your hand. Discharge Date/Time: 01/11/18 15:35
[2018-01-11 15:36] VITALS: BP 154/68
== END 2018-01-11 15:35 | disposition home or self-care (01) ==
LOC: ED 14:06
DX: R60.0 Localized edema (principal); Z98.890 Other specified postprocedural states; I10 Essential (primary) hypertension; E78.00 Pure hypercholesterolemia, unspecified; Z79.82 Long term (current) use of aspirin
CPT/HCPCS: 80053; 83605; 83690; 85025; 99282; 99283

== ENCOUNTER 2018-09-07 12:04 | Outpatient (CLI) | payer MEDICARE, OTHER | END 2018-09-07 12:05 | disposition critical access hospital (66) | LOC: EMS 12:04 | PROVIDERS: ATTEND Surgery | DX: S01.01XA Laceration without foreign body of scalp, initial encounter (principal); W18.30XA Fall on same level, unspecified, initial encounter; Y93.89 Activity, other specified; Y92.512 Supermarket, store or market as the place of occurrence of the external cause; Y99.8 Other external cause status; Z99.2 Dependence on renal dialysis | CPT/HCPCS: A0425; A0429 ==

== ENCOUNTER 2018-09-07 12:22 | Emergency (ER) | payer MEDICARE, OTHER ==
--- NOTE | 2018-09-07 13:18 | CT Report ---
Reason: fall, head/neck injury Procedure Date: 09/07/2018 Accession Number: [id number] / [id number] Procedure: CT - Cervical Spine W/O CPT Code: FULL RESULT: EXAM: CT HEAD. CT SCAN OF THE CERVICAL SPINE. EXAM DATE: 09/07/2018 01:00 PM. CLINICAL HISTORY: Fall confusion. COMPARISON: HEAD W/O 03/30/2017 5:30 PM CERVICAL SPINE W/O 09/07/2018 12:50 PM. TECHNIQUE: Noncontrast axial sections through the head and cervical spine. Reformats: Sagittal and coronal of the head, coronal and sagittal of the cervical spine. In accordance with CT protocol optimization, one or more of the following dose reduction techniques were utilized for this exam: automated exposure control, adjustment of mA and/or KV based on patient size, or use of iterative reconstructive technique. FINDINGS CT HEAD: Parenchyma: No intraparenchymal hemorrhage. No evidence of mass, midline shift. Clements-white differentiation is distinct. Extraaxial Spaces: Normal for age. No subdural or epidural collections identified. Ventricles: Stable in size and configuration. Sinuses and orbits: Imaged paranasal sinuses, orbits, and mastoids show no significant abnormality. Bones: No evidence of fracture or calvarial defect. Other: Left frontal superficial scalp laceration. FINDINGS CT CERVICAL SPINE: Alignment: Normal. No scoliosis or spondylolisthesis. Bones: No fracture or bone lesion. Interspace Levels/Facets: Multilevel degenerative changes are most present at C5-C6. Spinal Canal: Normal. Musculature: Normal. No fatty atrophy. Other: The paravertebral and prevertebral soft tissues are unremarkable. Lung apices demonstrate emphysematous changes. IMPRESSION: Head CT: Negative. Cervical Spine CT: Negative. RADIA
--- NOTE | 2018-09-07 13:18 | CT Report ---
Reason: fall confusion Procedure Date: 09/07/2018 Accession Number: [id number] / [id number] Procedure: CT - Head W/O CPT Code: FULL RESULT: EXAM: CT HEAD. CT SCAN OF THE CERVICAL SPINE. EXAM DATE: 09/07/2018 01:00 PM. CLINICAL HISTORY: Fall confusion. COMPARISON: HEAD W/O 03/30/2017 5:30 PM CERVICAL SPINE W/O 09/07/2018 12:50 PM. TECHNIQUE: Noncontrast axial sections through the head and cervical spine. Reformats: Sagittal and coronal of the head, coronal and sagittal of the cervical spine. In accordance with CT protocol optimization, one or more of the following dose reduction techniques were utilized for this exam: automated exposure control, adjustment of mA and/or KV based on patient size, or use of iterative reconstructive technique. FINDINGS CT HEAD: Parenchyma: No intraparenchymal hemorrhage. No evidence of mass, midline shift. Clements-white differentiation is distinct. Extraaxial Spaces: Normal for age. No subdural or epidural collections identified. Ventricles: Stable in size and configuration. Sinuses and orbits: Imaged paranasal sinuses, orbits, and mastoids show no significant abnormality. Bones: No evidence of fracture or calvarial defect. Other: Left frontal superficial scalp laceration. FINDINGS CT CERVICAL SPINE: Alignment: Normal. No scoliosis or spondylolisthesis. Bones: No fracture or bone lesion. Interspace Levels/Facets: Multilevel degenerative changes are most present at C5-C6. Spinal Canal: Normal. Musculature: Normal. No fatty atrophy. Other: The paravertebral and prevertebral soft tissues are unremarkable. Lung apices demonstrate emphysematous changes. IMPRESSION: Head CT: Negative. Cervical Spine CT: Negative. RADIA
[2018-09-07] MEDS ORDERED: BACITRACIN OINT TOP STA (13:30)
[2018-09-07] MEDS ORDERED: LIDOCAINE 2%-EPI 1:100000 20 ML MDV SUBQ STA (13:32)
--- NOTE | 2018-09-07 13:33 | ED Physician Documentation ---
PD HPI Fall - Stated complaint Stated Complaint: GLF - Chief complaint Chief Complaint: Trauma Hd/Nk - History obtained from History obtained from: Patient, EMS - History of Present Illness Mechanism of injury: Tripped Fall distance: Standing position Where injury occurred: Other (parking lot) Timing - onset: How many hours ago (1) Injury(ies) location: Head, Other (hands) Pain level max: 6 Pain level now: 1 Quality of pain: Pain Associated symptoms: AMS (was altered initially with EMS, now back to normal). No: LOC, Amnesia, Seizures, Ear drainage, Nasal drainage, Neck pain, Weakness, Paresthesias, Dyspnea, Nausea / vomiting, Hematemesis, Abdominal distension Symptoms improve with: Nothing Worsens with: Other (nothing) Contributing factors: No: Anticoagulated, Intoxicated Similar symptoms before: Has not had sx before Recently seen: Not recently seen Review of Systems Constitutional: denies: Fever, Chills Eyes: denies: Decreased vision Ears: denies: Ear pain Throat: denies: Sore throat Cardiac: denies: Chest pain / pressure, Palpitations GI: denies: Vomiting, Diarrhea Skin: denies: Rash Musculoskeletal: denies: Neck pain, Back pain Neurologic: denies: Focal weakness, Numbness, Seizure, Confused, LOC PD PAST MEDICAL HISTORY - Past Medical History Past Medical History: Yes Cardiovascular: Hypertension, High cholesterol Respiratory: None Endocrine/Autoimmune: None GI: None : Dialysis, Incontinence, Renal insuffiency HEENT: None Psych: None Musculoskeletal: None Derm: None - Past Surgical History Past Surgical History: Yes - Present Medications Home Medications: Ambulatory Orders Medication Instructions Recorded Confirmed Metoprolol Tartrate 12.5 mg PO BID 09/13/17 01/11/18 Rosuvastatin Calcium [Crestor] 40 mg PO QPM 09/13/17 01/11/18 amLODIPine [Norvasc] 5 mg PO DAILY 09/13/17 01/11/18 - Allergies Allergies/Adverse Reactions: Allergies Allergy/AdvReac Type Severity Reaction Status Date / Time No Known Drug Allergies Allergy Verified 09/07/18 12:38 - Social History Does the pt smoke?: No Smoking Status: Never smoker Does the pt drink ETOH?: No Does the pt have substance abuse?: No - Immunizations Immunizations are current?: Yes Immunizations: TDAP current <10years - POLST Patient has POLST: No POLST Status: DNR PD ED PE NORMAL - Vitals Vital signs reviewed: Yes - General General: Alert and oriented X 3, No acute distress, Well developed/nourished - HEENT HEENT: PERRL, Ears normal, Moist mucous membranes, Pharynx benign, Other (fontal scalp hematoma with 2cm laceration.) - Neck Neck: Supple, no meningeal sign, Other (mild upper C-spine TTP) - Cardiac Cardiac: RRR, Strong equal pulses - Respiratory Respiratory: No respiratory distress, Clear bilaterally - Abdomen Abdomen: Soft, Non tender, Non distended - Back Back: No spinal TTP - Derm Derm: Warm and dry, No rash - Extremities Extremities: No edema, No calf tenderness / cord, Other (B hands with superficial abrasions.) - Neuro Neuro: Alert and oriented X 3, saas architect 2-12 intact, No motor deficit, No sensory deficit Eye Opening: Spontaneous Motor: Obeys Commands Verbal: Oriented GCS Score: 15 - Psych Psych: Normal mood, Normal affect Results - Vitals Vitals: Vital Signs - 24 hr 09/07/18 09/07/18 12:23 13:30 Temperature 36.2 C L Heart Rate 66 70 Respiratory 18 18 Rate Blood Pressure 148/75 H 153/99 H O2 Saturation 100 95 Oxygen O2 Source Room air - Rads (name of study) head CT Radiology: Prelim report reviewed, EMP read contemporaneously, See rad report (No acute intracranial abnormality) Cervical spine CT Radiology: Prelim report reviewed, EMP read contemporaneously, See rad report (No acute intracranial abnormality) Procedures - Laceration (location) forehead Length in cm: 2 Wound type: Linear, Into subcut fat, Clean Neurovascular status: Sensory intact, Motor intact, Vascular intact Anesthesia: Lidocaine 2% with epi Wound Preparation: Irrigated copiously NS, Wound explored, To the base. No: FB identified Skin layer closure: Nylon, Interrupted, Size #-0 - enter number (4), Sutures - enter # (2) Other: Patient tolerated well, No complications, Neurovascular intact, Dressing applied, Tetanus UTD Complexity: Simple PD MEDICAL DECISION MAKING - ED course Complexity details: reviewed results, re-evaluated patient, considered differential, d/w patient ED course: 88-year-old male status post a ground-level fall today. Abrasions to the bilateral hands and a scalp hematoma/laceration of the forehead. Negative head CT. Negative cervical spine CT. Laceration repaired. Tolerated well. Warnings of infection and instructions on wound care given at bedside. Also counseled on how to minimize scarring. Patient counseled regarding signs and symptoms for which I believe and urgent re-evaluation would be necessary. Patient with good understanding of and agreement to plan and is comfortable going home at this time This document was made in part using voice recognition software. While efforts are made to proofread this document, sound alike and grammatical errors may occur. Departure - Departure Disposition: Home, Self Care Clinical Impression: Head injury Qualifiers: Encounter type: initial encounter Qualified Code(s): S09.90XA - Unspecified injury of head, initial encounter Facial laceration Qualifiers: Encounter type: initial encounter Qualified Code(s): S01.81XA - Laceration wit hout foreign body of other part of head, initial encounter Hand abrasion Qualifiers: Encounter type: initial encounter Laterality: unspecified laterality Qualified Code(s): S60.519A - Abrasion of unspecified hand, initial encounter Condition: Good Instructions: ED Abrasion, ED Head Injury Closed, ED Laceration All Follow-Up: Danie Morrow MD [Primary Care Provider] - (in 7-10 days for suture removal) Comments: The stitches should be removed in 7-10 days with your doctor. Return if you worsen. Keep the wounds clean. Return for redness, swelling or drainage from the wound. Discharge Date/Time: 09/07/18 14:05
[2018-09-07 13:55] VITALS: BP 153/99
[2018-09-07] MEDS ORDERED: BACITRACIN OINT TOP ONE (13:59)
== END 2018-09-07 14:05 | disposition home or self-care (01) ==
LOC: EDUNIT# → ED 12:22
DX: S01.81XA Laceration without foreign body of other part of head, initial encounter (principal); S00.03XA Contusion of scalp, initial encounter; S60.512A Abrasion of left hand, initial encounter; S60.511A Abrasion of right hand, initial encounter; S09.90XA Unspecified injury of head, initial encounter; W01.0XXA Fall on same level from slipping, tripping and stumbling without subsequent striking against object, initial encounter; Y93.01 Activity, walking, marching and hiking; Y92.481 Parking lot as the place of occurrence of the external cause; I10 Essential (primary) hypertension; Z99.2 Dependence on renal dialysis
CPT/HCPCS: 12011; 70450; 72125; 99283; A9270

== ENCOUNTER 2020-07-11 12:19 | Emergency (ER) | payer MEDICARE, OTHER ==
--- NOTE | 2020-07-11 12:33 | ED Physician Documentation ---
History of Present Illness - Stated complaint Stated Complaint: SWELLING RT ARM - History obtained from History obtained from: Patient - Additonal information Additional information: 89-year-old gentleman presents the emergency department for evaluation of erythema and right arm swelling. He reports that he had an AV fistula placed in this arm [address] Killian at [facility]. About 4 to 5 days ago he noticed that there was swelling and redness of the right arm around the bicep. This AV fistula was placed because his left arm fistula failed. He currently has a Vas-Cath in his right chest. He undergoes Qkgsybq[facility][id number]-Yyxnzpmt dialysis in [place] with [facility] dialysis. He denies any cough or fevers. He denies chest pain or shortness of breath. He has no leg swelling. He reports that the arm itches more than anything else. He reports that when he was in dialysis yesterday they did give him a dose of antibiotics through the dialysate. Review of Systems Constitutional: denies: Fever, Chills Eyes: reports: Reviewed and negative Ears: reports: Reviewed and negative Nose: reports: Reviewed and negative Throat: reports: Reviewed and negative Cardiac: reports: Reviewed and negative Respiratory: reports: Reviewed and negative GI: reports: Reviewed and negative : reports: Reviewed and negative Skin: reports: Other (Right arm AV fistula swelling/erythema) Musculoskeletal: reports: Reviewed and negative Neurologic: reports: Reviewed and negative PD PAST MEDICAL HISTORY - Past Medical History Cardiovascular: Hypertension, High cholesterol Respiratory: None Endocrine/Autoimmune: None GI: None : Dialysis, Incontinence, Renal insuffiency HEENT: None Psych: None Musculoskeletal: None Derm: None - Past Surgical History Past Surgical History: Yes - Present Medications Home Medications: Ambulatory Orders Medication Instructions Recorded Confirmed Metoprolol Tartrate 12.5 mg PO BID 09/13/17 01/11/18 Rosuvastatin Calcium [Crestor] 40 mg PO QPM 09/13/17 01/11/18 amLODIPine [Norvasc] 5 mg PO DAILY 09/13/17 01/11/18 - Allergies Allergies/Adverse Reactions: Allergies Allergy/AdvReac Type Severity Reaction Status Date / Time No Known Drug Allergies Allergy Verified 07/11/20 12:33 - Social History Does the pt smoke?: No Smoking Status: Never smoker Does the pt drink ETOH?: No Does the pt have substance abuse?: No - Immunizations Immunizations are current?: Yes Immunizations: TDAP current <10years - POLST Patient has POLST: No POLST Status: DNR PD ED PE EXPANDED - General General: Alert, No acute distress, Well developed/nourished - HEENT HEENT: PERRL, EOMI - Neck Neck: Supple w/out meningeal sx, No tenderness - Cardiac Cardiac: Regular Rate, Regular Rhythm, Murmur Present, Radial strong equal, Cap refill < 2 sec - Respiratory Respiratory: Clear to ausultation santino. No: Distress, Labored - Abdomen Abdomen: Normal Bowel sounds, Surgical scars (larger vertical midline incision well healed). No: Distended, Tender to palpation - Extremities Extremities: Right arm (Right arm AV fistula with positive bruit and thrill. Extensive erythema and induration of the right bicep and inner arm with edema e xtending into the forearm.), Left arm (AV fistula in the left arm without bruit or thrill). No: Pedal edema bilateral - Neuro Neuro: Alert and Oriented X 3, CNII-XII intact - GCS Eye Opening: Spontaneous Motor: Obeys Commands Verbal: Oriented Total: 15 Results - Vitals Vitals: Vital Signs - 24 hr 07/11/20 07/11/20 07/11/20 12:28 13:00 13:30 Temperature 36.2 C L Heart Rate 66 65 68 Respiratory 18 21 20 Rate Blood Pressure 161/76 H 133/49 H 132/52 H O2 Saturation 100 99 98 07/11/20 07/11/20 14:00 14:25 Temperature 37.2 C Heart Rate 63 Respiratory 21 Rate Blood Pressure 140/59 H O2 Saturation 99 Oxygen O2 Source Room air - Labs Labs: Laboratory Tests 07/11/20 07/11/20 07/11/20 12:50 12:50 12:50 WBC 6.8 RBC 3.42 L Hgb 10.4 L Hct 32.2 L MCV 94.2 H MCH 30.4 MCHC 32.3 RDW 17.3 H Plt Count 106 L MPV 10.0 Neut # (Auto) 4.4 Lymph # (Auto) 1.5 Benzie # (Auto) 0.7 Eos # (Auto) 0.1 Baso # (Auto) 0.0 Absolute Nucleated RBC 0.00 Nucleated RBC % 0.0 ESR 20 Sodium 136 Potassium 4.5 Chloride 95 L Carbon Dioxide 26 Anion Gap 15.0 H BUN 50 H Creatinine 7.5 H* Estimated GFR (MDRD) 7 L Glucose 131 H Calcium 8.7 Total Bilirubin 0.7 AST 31 ALT < 10 L Alkaline Phosphatase 64 C-Reactive Protein 3.8 H Total Protein 6.9 Albumin 3.7 Globulin 3.2 Albumin/Globulin Ratio 1.2 Lipase 43 Nasal Adenovirus (PCR) Nasal B. parapertussis DNA (PCR) Nasal Coronavir 229E PCR Nasal Coronavir HKU1 PCR Nasal Coronavir NL63 PCR Nasal Coronavir OC43 PCR Nasal Enterovir/Rhinovir PCR Nasal Influenza B PCR Nasal Influenza A PCR Nasal Parainfluen 1 PCR Nasal Parainfluen 2 PCR Nasal Parainfluen 3 PCR Nasal Parainfluen 4 PCR Nasal RSV (PCR) Nasal B.pertussis DNA PCR Nasal C.pneumoniae (PCR) Dutch Human Metapneumo PCR Nasal M.pneumoniae (PCR) Nasal SARS-CoV-2 (PCR) 07/11/20 12:50 WBC RBC Hgb Hct MCV MCH MCHC RDW Plt Count MPV Neut # (Auto) Lymph # (Auto) Benzie # (Auto) Eos # (Auto) Baso # (Auto) Absolute Nucleated RBC Nucleated RBC % ESR Sodium Potassium Chloride Carbon Dioxide Anion Gap BUN Creatinine Estimated GFR (MDRD) Glucose Calcium Total Bilirubin AST ALT Alkaline Phosphatase C-Reactive Protein Total Protein Albumin Globulin Albumin/Globulin Ratio Lipase Nasal Adenovirus (PCR) NOT DETECTED Nasal B. parapertussis DNA (PCR) NOT DETECTED Nasal Coronavir 229E PCR NOT DETECTED Nasal Coronavir HKU1 PCR NOT DETECTED Nasal Coronavir NL63 PCR NOT DETECTED Nasal Coronavir OC43 PCR NOT DETECTED Nasal Enterovir/Rhinovir PCR NOT DETECTED Nasal Influenza B PCR NOT DETECTED Nasal Influenza A PCR NOT DETECTED Nasal Parainfluen 1 PCR NOT DETECTED Nasal Parainfluen 2 PCR NOT DETECTED Nasal Parainfluen 3 PCR NOT DETECTED Nasal Parainfluen 4 PCR NOT DETECTED Nasal RSV (PCR) NOT DETECTED Nasal B.pertussis DNA PCR NOT DETECTED Nasal C.pneumoniae (PCR) NOT DETECTED Dutch Human Metapneumo PCR NOT DETECTED Nasal M.pneumoniae (PCR) NOT DETECTED Nasal SARS-CoV-2 (PCR) NOT DETECTED - Rads (name of study) US Arterial RUE Radiology: Final report received (Nonocclusive thrombus in the fistula 1.7 cm central to the arterial anastomosis) PD MEDICAL DECISION MAKING - ED course Complexity details: reviewed results, re-evaluated patient, considered differential, d/w patient ED course: 89-year-old gentleman with 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 He recently had a new AV fistula placed with Dr. Killian 2 weeks ago at [facility]. On ultrasound exam of the upper arm today there is thrombus in the distal portion of the AV fistula. This is likely contributing to the swelling in the arm. His CRP is markedly elevated. Blood cultures are pending this gentleman was given 1 g of vancomycin here in the emergency department. Multiple attempts were made to contact Dr. Killian with [facility] unfortunately we were unable to find a vascular surgeon by that name. Given that this gentleman man requires hemodialysis and he will need vascular surgery intervention for the thrombus in his AV fistula we are unable to keep him here at [facility]. We did attempt to transfer to [facility] through the transfer center but they reported that they were 100% full and holding patients in the emergency department. The transfer center recommended that I speak directly with the ER physician to transfer directly to the emergency department. I did speak with Dr. Jama Lind and ER physician at [facility] and he agrees to accept this patient in transfer for further evaluation of thrombus in the right AV fistula as well as concerns of infection. Patient will be transported via BLS. Pt notified and his was also made aware of pending transfer Departure - Departure Disposition: 02 Transfer Acute Care Hosp Clinical Impression: ESRD (end stage renal disease) on dialysis, Right arm cellulitis AV fistula thrombosis Qualifiers: Encounter type: initial encounter Qualified Code(s): T82.868A - Thrombosis due to vascular prosthetic devices, implants and grafts, initial encounter
[2020-07-11] MEDS ORDERED: VANCOMYCIN INJ 1 GM in SODIUM CHLORIDE 0.9% 500 ML IV STA (12:39)
[2020-07-11] MEDS ORDERED: VANCOMYCIN INJ 1 GM in SODIUM CHLORIDE 0.9% 250 ML IV STA (12:43)
[2020-07-11 13:13] LABS: BASOPHILS % (AUTO) 0.3 %; EOSINOPHILS # (AUTO) 0.1 10^3/uL (0.0-0.7); EOSINOPHILS % (AUTO) 1.5 %; HGB - HEMOGLOBIN 10.4 g/dL (14.0-18.0); LYMPHOCYTES # (AUTO) 1.5 10^3/uL (1.5-3.5); LYMPHOCYTES % (AUTO) 22.2 %; MEAN CORPUSCULAR HEMOGLOBIN 30.4 pg (27.0-31.0); MEAN CORPUSCULAR HGB CONC 32.3 g/dL (32.0-36.0); MEAN CORPUSCULAR VOLUME 94.2 fL (80.0-94.0); MONOCYTES # (AUTO) 0.7 10^3/uL (0.0-1.0); MONOCYTES % (AUTO) 10.7 %; NEUTROPHILS # (AUTO) 4.4 10^3/uL (1.5-6.6); PLT - PLATELET COUNT 106 10^3/uL (130-450); RED BLOOD COUNT 3.42 10^6/uL (4.70-6.10); RED CELL DISTRIBUTION WIDTH 17.3 % (12.0-15.0); WHITE BLOOD COUNT 6.8 x10^3/uL (4.8-10.8)
[2020-07-11 13:33] LABS: ALBUMIN 3.7 g/dL (3.2-5.5); ALBUMIN/GLOBULIN RATIO 1.2 (1.0-2.2); ALKALINE PHOSPHATASE 64 IU/L (42-121); ALT ALANINE AMINOTRANSFERASE < 10 IU/L (10-60); AST ASPARTATE AMINOTRANSFERASE 31 IU/L (10-42); BILIRUBIN,TOTAL 0.7 mg/dL (0.2-1.0); BUN - BLOOD UREA NITROGEN 50 mg/dL (6-20); CALCIUM 8.7 mg/dL (8.5-10.3); CARBON DIOXIDE - CO2 26 mmol/L (21-32); CHLORIDE 95 mmol/L (101-111); CRP - C-REACTIVE PROTEIN 3.8 mg/dL (0-1.0); GLUCOSE 131 mg/dL (70-100); LIPASE 43 U/L (22-51); SODIUM 136 mmol/L (135-145); TOTAL PROTEIN 6.9 g/dL (6.7-8.2)
[2020-07-11 13:34] LABS: CREATININE 7.5 mg/dL (0.6-1.2)
[2020-07-11 13:56] LABS: C. PNEUMONIAE- RESP PCR PANEL NOT DETECTED
--- NOTE | 2020-07-11 13:57 | Ultrasound Report ---
PROCEDURE: Duplex Upr Ext Arterial RT INDICATIONS: new AV fistula; erythema; r/o clot TECHNIQUE: Color and pulse Doppler interrogation was performed of right upper extremity arterial systems, with i mage documentation. COMPARISON: None. FINDINGS: Grayscale ultrasound images of the AV graft was performed. There is AV graft in the right upper extre mity from the brachial artery. At the arterial anastomosis there is a velocity of 247 cm/s. There is flow throughout the fistula, however a thrombus in the fistula 1.7 cm proximal to the arterial anasto mosis is seen. In the mid graft velocities are 238 and 205 cm/s. Adjacent to the venous anastomosis v elocities are 93 and 121 cm/s. Central to the graft velocity is 74 cm/s. IMPRESSION: Nonocclusive thrombus in the fistula 1.7 cm central to the arterial anastomosis. Reviewed by: Cristobal Barrera on 07/11/2020 1:56 PM PST Approved by: Cristobal Barrera on 07/11/2020 1:56 PM PST Station ID: [id number]
[2020-07-11 14:24] VITALS: BP 140/59
== END 2020-07-11 16:12 | disposition short-term general hospital (02) ==
LOC: ED 12:19
DX: T82.868A Thrombosis due to vascular prosthetic devices, implants and grafts, initial encounter (principal); Y83.2 Surgical operation with anastomosis, bypass or graft as the cause of abnormal reaction of the patient, or of later complication, without mention of misadventure at the time of the procedure; L03.113 Cellulitis of right upper limb; I12.0 Hypertensive chronic kidney disease with stage 5 chronic kidney disease or end stage renal disease; N18.6 End stage renal disease; Z99.2 Dependence on renal dialysis; Z20.828 Contact with and (suspected) exposure to other viral communicable diseases
CPT/HCPCS: 80053; 83690; 85025; 85651; 86140; 87040; 87631; 93931; 96365; 99284; 99285; J3370; 0202U; 36415

== ENCOUNTER 2020-10-08 08:00 | Outpatient (CLI) | payer MEDICARE, OTHER ==
[2020-10-08 18:07] LABS: BASOPHILS % (AUTO) 0.3 %; EOSINOPHILS # (AUTO) 0.1 10^3/uL (0.0-0.7); EOSINOPHILS % (AUTO) 1.2 %; HCT - HEMATOCRIT 32.7 % (42.0-52.0); HGB - HEMOGLOBIN 10.2 g/dL (14.0-18.0); LYMPHOCYTES % (AUTO) 29.3 %; MEAN CORPUSCULAR HEMOGLOBIN 31.4 pg (27.0-31.0); MEAN CORPUSCULAR HGB CONC 31.2 g/dL (32.0-36.0); MEAN CORPUSCULAR VOLUME 100.6 fL (80.0-94.0); MEAN PLATELET VOLUME 10.8 fL (7.4-11.4); MONOCYTES # (AUTO) 0.5 10^3/uL (0.0-1.0); MONOCYTES % (AUTO) 7.5 %; NEUTROPHILS # (AUTO) 4.1 10^3/uL (1.5-6.6); NEUTROPHILS % (AUTO) 61.3 %; PLT - PLATELET COUNT 127 10^3/uL (130-450); RED BLOOD COUNT 3.25 10^6/uL (4.70-6.10); RED CELL DISTRIBUTION WIDTH 15.6 % (12.0-15.0); WHITE BLOOD COUNT 6.7 x10^3/uL (4.8-10.8)
[2020-10-08 18:34] LABS: THYROID STIMULATING HORMONE 3.22 uIU/mL (0.34-5.60)
[2020-10-08 18:53] LABS: ALBUMIN/GLOBULIN RATIO 1.2 (1.0-2.2); ALKALINE PHOSPHATASE 54 IU/L (42-121); ALT ALANINE AMINOTRANSFERASE 12 IU/L (10-60); AST ASPARTATE AMINOTRANSFERASE 28 IU/L (10-42); BILIRUBIN,TOTAL 0.8 mg/dL (0.2-1.0); BUN - BLOOD UREA NITROGEN 52 mg/dL (6-20); CALCIUM 9.1 mg/dL (8.5-10.3); CARBON DIOXIDE - CO2 23 mmol/L (21-32); CHLORIDE 96 mmol/L (101-111); CHOL/HDL RATIO 2.7 (<5.0); CHOLESTEROL 149 mg/dL; GFR - MDRD 6 (>89); GLUCOSE 95 mg/dL (70-100); HDL CHOLESTEROL 55 mg/dL; LDL CHOLESTEROL,CALCULATED 75 mg/dL; LDL/HDL RATIO 1.4 (<3.6); POTASSIUM 5.1 mmol/L (3.5-5.0); SODIUM 135 mmol/L (135-145); TOTAL PROTEIN 7.3 g/dL (6.7-8.2); TRIGLYCERIDES 97 mg/dL; VLDL CHOLESTEROL 19 mg/dL
== END 2020-10-08 23:59 | disposition home or self-care (01) ==
LOC: LAB.WCP 08:00
PROVIDERS: ATTEND Internal Medicine
DX: I12.0 Hypertensive chronic kidney disease with stage 5 chronic kidney disease or end stage renal disease (principal); N40.1 Benign prostatic hyperplasia with lower urinary tract symptoms; N18.5 Chronic kidney disease, stage 5; E78.5 Hyperlipidemia, unspecified; I95.1 Orthostatic hypotension; E87.5 Hyperkalemia; R00.1 Bradycardia, unspecified; E86.0 Dehydration; N28.9 Disorder of kidney and ureter, unspecified; D64.9 Anemia, unspecified; I73.9 Peripheral vascular disease, unspecified
CPT/HCPCS: 36415; 80053; 80061; 84443; 85025; G0103; 83721; 84153

== ENCOUNTER 2020-10-23 17:27 | Emergency (ER) | payer MEDICARE, OTHER ==
--- NOTE | 2020-10-23 17:52 | ED Physician Documentation ---
History of Present Illness - Stated complaint Stated Complaint: POST DIALYSIS WEAKNESS - Chief complaint Chief Complaint: General - Additonal information Additional information: 89-year-old male presents the emergency department for evaluation of generalized weakness. He has a history of end-stage renal disease and is on 3 times weekly dialysis. His session ended at noon today. He reports that he ran for the normal time without any known complications. However at the end of dialysis he felt extremely fatigued and weak and it took him a while before he could stand. He denies having focal deficits such as slurred speech unilateral or focal arm or leg weakness. Since dialysis ended nearly 6 hours ago he feels better and is now ambulating on his own. He denies chest pain or shortness of breath. He has no extremity edema. Mouth and mucous membranes apper dry. No syncope, headache Review of Systems Constitutional: denies: Fever, Chills Eyes: reports: Reviewed and negative Ears: reports: Reviewed and negative Nose: reports: Reviewed and negative Throat: reports: Reviewed and negative Cardiac: denies: Chest pain / pressure, Palpitations, Pedal edema Respiratory: denies: Dyspnea, Cough GI: denies: Abdominal Pain, Abdominal Swelling, Nausea, Vomiting, Constipation, Diarrhea, Hematemesis, Bloody / black stool : denies: Dysuria, Frequency, Hesitancy Skin: denies: Rash, Lesions Musculoskeletal: denies: Neck pain Neurologic: reports: Generalized weakness. denies: Focal weakness, Numbness, Near syncope, Syncope, Altered mental status, Unresponsive, Headache, LOC PD PAST MEDICAL HISTORY - Past Medical History Cardiovascular: Hypertension, High cholesterol Respiratory: None Endocrine/Autoimmune: None GI: None : Dialysis, Incontinence, Renal insuffiency HEENT: None Psych: None Musculoskeletal: None Derm: None - Past Surgical History Past Surgical History: Yes - Present Medications Home Medications: Ambulatory Orders Medication Instructions Recorded Confirmed Metoprolol Tartrate 12.5 mg PO BID 09/13/17 10/23/20 Rosuvastatin Calcium [Crestor] 40 mg PO QPM 09/13/17 10/23/20 amLODIPine [Norvasc] 5 mg PO DAILY 09/13/17 10/23/20 - Allergies Allergies/Adverse Reactions: Allergies Allergy/AdvReac Type Severity Reaction Status Date / Time No Known Drug Allergies Allergy Verified 10/23/20 17:51 - Social History Does the pt smoke?: No Smoking Status: Never smoker Does the pt drink ETOH?: No Does the pt have substance abuse?: No - Immunizations Immunizations are current?: Yes Immunizations: TDAP current <10years - POLST Patient has POLST: No POLST Status: DNR PD ED PE EXPANDED - General General: Alert, No acute distress, Well developed/nourished - Neck Neck: Supple w/out meningeal sx. No: Adenopathy - Cardiac Cardiac: Regular Rate, Murmur Present, Radial strong equal (1+ ), Pedal strong equal (1+ ), Cap refill < 2 sec - Respiratory Respiratory: Clear to ausultation santino. No: Distress, Labored - Abdomen Abdomen: Normal Bowel sounds. No: Tender to palpation - Derm Derm: Normal color, Warm and dry. No: Rash - Extremities Extremities: Normal. No: Deformity, Tenderness, Pedal edema bilateral - Neuro Neuro: Alert and Oriented X 3, CNII-XII intact, Normal gait (at baseline with walker), Normal speech - GCS Eye Opening: Spontaneous Motor: Obeys Commands Verbal: Oriented Total: 15 Results - Vitals Vitals: Vital Signs - 24 hr 10/23/20 10/23/20 10/23/20 17:31 17:52 18:10 Temperature 37.3 C Heart Rate 70 65 Heart Rate [ 67 Sitting] Heart Rate [ 72 Standing] Heart Rate [ 65 Supine] Respiratory 18 18 Rate Blood Pressure 149/55 H 157/52 H Blood Pressure 140/56 H [Sitting] Blood Pressure 125/59 L [Standing] Blood Pressure 135/57 H [Supine] O2 Saturation 96 100 10/23/20 18:34 Temperature Heart Rate 64 Heart Rate [ Sitting] Heart Rate [ Standing] Heart Rate [ Supine] Respiratory 19 Rate Blood Pressure 139/62 H Blood Pressure [Sitting] Blood Pressure [Standing] Blood Pressure [Supine] O2 Saturation 100 Oxygen O2 Source Room air - Labs Labs: Laboratory Tests 10/23/20 10/23/20 18:00 18:00 WBC 5.1 RBC 3.38 L Hgb 10.6 L Hct 33.5 L MCV 99.1 H MCH 31.4 H MCHC 31.6 L RDW 16.0 H Plt Count 101 L MPV 10.4 Neut # (Auto) 3.6 Lymph # (Auto) 1.0 L Warren # (Auto) 0.5 Eos # (Auto) 0.0 Baso # (Auto) 0.0 Absolute Nucleated RBC 0.00 Nucleated RBC % 0.0 Sodium 134 L Potassium 4.4 Chloride 91 L Carbon Dioxide 27 Anion Gap 16.0 H BUN 29 H Creatinine 5.4 H Estimated GFR (MDRD) 10 L Glucose 148 H Calcium 8.8 Total Bilirubin 0.7 AST 29 ALT 13 Alkaline Phosphatase 52 Total Protein 7.0 Albumin 3.8 Globulin 3.2 Albumin/Globulin Ratio 1.2 Lipase 156 H PD MEDICAL DECISION MAKING - ED course Complexity details: reviewed results, re-evaluated patient ED course: 89-year-old male presents emergency department for evaluation of generalized weakness after completing his dialysis treatment at noon today. He reports that for about 30 minutes after dialysis he felt too weak to get up but he did not have any focal weakness slurred speech or droopy face. Since completing dialysis he has eaten and is feeling much better. Here on presentation he appears well no vital sign abnormality or focal neuro deficits. Orthostatic vital signs were unremarkable. Screening CBC shows baseline anemia unchanged. Screening electrolytes are consistent with end-stage renal disease. Do note a lipase elevation of 153 however he has no vomiting or abdominal pain. I suspect that this gentleman is perhaps weak after dialysis with mild dehydration. No IV fluids were given to him here in the emergency department but I did encourage him to drink an extra glass or 2 of water a day. He will continue to follow-up with his primary care provider and hot air furnace installer repairer as already scheduled. Emergent return precautions were discussed. Departure - Departure Disposition: 01 Home, Self Care Clinical Impression: Weakness, ESRD (end stage renal disease) on dialysis Condition: Stable Record reviewed to determine appropriate education?: Yes Comments: Ankur as we discussed your general weakness is likely just a side effect of the dialysis and perhaps mild dehydration. Could you to drink an extra glass or 2 of water throughout the day. Your screening electrolytes are consistent with kidney disease. You do have known anemia that is no different from baseline. Discussed this ED visit with your primary care provider as well as your hot air furnace installer repairer. Return to the emergency department if you have any fainting episodes, develop suddenly severe abdominal pain have chest pain or shortness of breath
[2020-10-23 18:06] LABS: BASOPHILS % (AUTO) 0.4 %; EOSINOPHILS % (AUTO) 0.8 %; HCT - HEMATOCRIT 33.5 % (42.0-52.0); HGB - HEMOGLOBIN 10.6 g/dL (14.0-18.0); LYMPHOCYTES % (AUTO) 19.4 %; MEAN CORPUSCULAR HEMOGLOBIN 31.4 pg (27.0-31.0); MEAN CORPUSCULAR HGB CONC 31.6 g/dL (32.0-36.0); MEAN CORPUSCULAR VOLUME 99.1 fL (80.0-94.0); MEAN PLATELET VOLUME 10.4 fL (7.4-11.4); MONOCYTES # (AUTO) 0.5 10^3/uL (0.0-1.0); NEUTROPHILS # (AUTO) 3.6 10^3/uL (1.5-6.6); PLT - PLATELET COUNT 101 10^3/uL (130-450); RED BLOOD COUNT 3.38 10^6/uL (4.70-6.10); WHITE BLOOD COUNT 5.1 x10^3/uL (4.8-10.8)
[2020-10-23 18:19] LABS: ALBUMIN 3.8 g/dL (3.2-5.5); ALBUMIN/GLOBULIN RATIO 1.2 (1.0-2.2); BILIRUBIN,TOTAL 0.7 mg/dL (0.2-1.0); CALCIUM 8.8 mg/dL (8.5-10.3); CREATININE 5.4 mg/dL (0.6-1.2); POTASSIUM 4.4 mmol/L (3.5-5.0)
[2020-10-23 18:35] VITALS: BP 139/62
== END 2020-10-23 18:50 | disposition home or self-care (01) ==
LOC: ED 17:27
DX: R53.1 Weakness (principal); I12.0 Hypertensive chronic kidney disease with stage 5 chronic kidney disease or end stage renal disease; N18.6 End stage renal disease; Z99.2 Dependence on renal dialysis; D64.9 Anemia, unspecified; R74.8 Abnormal levels of other serum enzymes
CPT/HCPCS: 36415; 80053; 83690; 85025; 99283; 99284

== ENCOUNTER 2020-11-02 07:42 | Outpatient (CLI) | payer MEDICARE, OTHER | END 2020-11-02 07:43 | disposition home or self-care (01) | LOC: DI 07:42 | PROVIDERS: ATTEND Internal Medicine | DX: I51.7 Cardiomegaly (principal) | CPT/HCPCS: 93306 ==

== ENCOUNTER 2021-01-09 08:00 | Outpatient (CLI) | payer MEDICARE, OTHER ==
[2021-01-09 18:12] LABS: PSA FREE 0.8 ng/mL (0.16-2.81)
[2021-01-09 18:13] LABS: PSA TOTAL 4.63 ng/mL (0.000-2.000)
== END 2021-01-09 23:59 | disposition home or self-care (01) ==
LOC: LAB.WCP 08:00
PROVIDERS: ATTEND Internal Medicine
DX: R97.20 Elevated prostate specific antigen [PSA] (principal)
CPT/HCPCS: 36415; 84153; 84154

== ENCOUNTER 2021-06-16 09:57 | Emergency (ER) | payer MEDICARE, OTHER ==
--- NOTE | 2021-06-16 10:33 | ED Physician Documentation ---
PD HPI LOWER EXT INJURY - Stated complaint Stated Complaint: FALL - Chief complaint Chief Complaint: Trauma Ext - History obtained from History obtained from: Patient - History of Present Illness PD HPI LOW EXT INJURY LOCATION: Left, Hip Type of injury: Fall Where injury occurred: Home Timing - onset: Last night Timing - duration: Hours Timing - details: Abrupt onset, Still present Improved by: Rest, Immobilization Worsened by: Moving, Palpating, Other (weight bearing) Associated symptoms: No: Weakness, Numbness, Tingling, Swelling, Discolored Contributing factors: No: Anticoagulated Similar symptoms before: Has not had sx before Recently seen: Not recently seen - Additional information Additional information: 89-year-old male on three times weekly hemodialysis was in his home last night got up from bed went to the bathroom and coming back into the room he fell forward and fell onto his left side onto a rug. Review of Systems Constitutional: denies: Fever Respiratory: denies: Cough GI: denies: Vomiting, Diarrhea PD PAST MEDICAL HISTORY - Past Medical History Cardiovascular: Hypertension, High cholesterol Respiratory: None Endocrine/Autoimmune: None GI: None : Dialysis, Incontinence, Renal insuffiency HEENT: None Psych: None Musculoskeletal: None Derm: None - Past Surgical History Past Surgical History: Yes - Present Medications Home Medications: Ambulatory Orders Medication Instructions Recorded Confirmed Metoprolol Tartrate 12.5 mg PO BID 09/13/17 06/16/21 Rosuvastatin Calcium [Crestor] 40 mg PO QPM 09/13/17 06/16/21 - Allergies Allergies/Adverse Reactions: Allergies Allergy/AdvReac Type Severity Reaction Status Date / Time No Known Drug Allergies Allergy Verified 06/16/21 10:06 - Social History Does the pt smoke?: No Smoking Status: Never smoker Does the pt drink ETOH?: No Does the pt have substance abuse?: No - Immunizations Immunizations are current?: Yes Immunizations: TDAP current <10years - POLST Patient has POLST: No POLST Status: DNR PD ED PE NORMAL - Vitals Vital signs reviewed: Yes (hypertensive) - General General: Alert and oriented X 3, No acute distress, Well developed/nourished - HEENT HEENT: Atraumatic, PERRL, EOMI - Neck Neck: Supple, no meningeal sign, No bony TTP - Cardiac Cardiac: RRR, No murmur - Respiratory Respiratory: No respiratory distress, Clear bilaterally - Back Back: No CVA TTP, No spinal TTP - Derm Derm: Normal color, Warm and dry, No rash - Extremities Extremities: No deformity, No edema, Other (left trochanter pain) - Neuro Neuro: Alert and oriented X 3, pbx wire chief 2-12 intact, No motor deficit, No sensory deficit, Normal speech Eye Opening: Spontaneous Motor: Obeys Commands Verbal: Oriented GCS Score: 15 - Psych Psych: Normal mood, Normal affect Results - Vitals Vitals: Vital Signs - 24 hr 06/16/21 06/16/21 06/16/21 10:02 10:42 12:06 Temperature 36.1 C L Heart Rate 67 68 67 Respiratory 16 18 18 Rate Blood Pressure 167/62 H 166/70 H 175/72 H O2 Saturation 95 93 97 Oxygen O2 Source Room air - Rads (name of study) L hip Radiology: Prelim report reviewed (Impression: 1. No fracture or dislocation.), EMP read indepedently, See rad report PD MEDICAL DECISION MAKING - ED course Complexity details: reviewed results, re-evaluated patient, considered differential, d/w patient ED course: 89-year-old dialysis patient with a ground-level fall has a contusion to his left hip. Plain films of decent bone structure are negative for fracture. He has some pain if he tries to go up and ambulate but he is able to ambulate and he has improvement in this pain if he uses some Tylenol. Departure - Departure Disposition: 01 Home, Self Care Clinical Impression: Contusion, hip Qualifiers: Encounter type: initial encounter Laterality: left Qualified Code(s): S70.02XA - Contusion of left hip, initial encounter Condition: Stable Instructions: ED Contusion Hip Follow-Up: Narendra Botello MD [Primary Care Provider] - Comments: For pain control use tylenol every 4-6hours
--- NOTE | 2021-06-16 11:14 | XRAY Report ---
PROCEDURE: Hip w/Pelvis 2-3V LT INDICATIONS: fall cant bear weight no deformity TECHNIQUE: AP pelvis with lateral view of the left hip. COMPARISON: None. FINDINGS: Bones: No fractures or dislocations. The hip joint spaces appear preserved. Pelvic ring appears int act. No suspicious bony lesions. Soft tissues: The visualized bowel gas pattern is normal. There are diffuse vascular calcifications. IMPRESSION: 1. No fracture or dislocation. Reviewed by: Juan St MD on 06/16/2021 11:12 AM PST Approved by: Juan St MD on 06/16/2021 11:12 AM PST Station ID: [id number]
[2021-06-16] MEDS ORDERED: ACETAMINOPHEN 325 MG TABLET PO STA (11:30)
[2021-06-16 12:18] VITALS: BP 175/72
== END 2021-06-16 13:42 | disposition home or self-care (01) ==
LOC: ED 09:57
DX: S70.02XA Contusion of left hip, initial encounter (principal); W19.XXXA Unspecified fall, initial encounter; Y93.01 Activity, walking, marching and hiking; Y92.003 Bedroom of unspecified non-institutional (private) residence as the place of occurrence of the external cause; Z66 Do not resuscitate
CPT/HCPCS: 73502; 99282; 99283; A9270

== ENCOUNTER 2021-06-25 11:29 | Outpatient (CLI) | payer MEDICARE, OTHER ==
--- NOTE | 2021-06-25 13:01 | XRAY Report ---
PROCEDURE: Femur 2V LT INDICATIONS: L HIP PX TECHNIQUE: AP and lateral views of the femur were acquired. COMPARISON: 06/16/2021. FINDINGS: Bones: Suggestion of subtle cortical irregularity involving the anterior cortex of the proximal left femur near the level of the trochanters seen only on the crosstable lateral view. No definite fractu re line identified. Overall alignment is anatomic. Remainder the visualized osseous structures appear intact. Degenerative changes of the left knee and hip. Visualized portion of the pelvic ring appear intact. No acute dislocations. No suspicious bony lesions. Soft tissues: No suspicious soft tissue calcifications or masses. Extensive atherosclerotic calcifi cations are noted. IMPRESSION: Suggestion of subtle cortical irregularity involving the anterior cortex of the proximal left femur n ear the level of the trochanters which is only seen on the crosstable lateral view. No definite fract ure line identified. Given history of trauma, a nondisplaced fracture not completely excluded. Consid er further evaluation with CT or MRI to confirm. Reviewed by: Sudhir Mckeon MD on 06/25/2021 1:00 PM PST Approved by: Sudhir Mckeon MD on 06/25/2021 1:00 PM PST Station ID: [id number]
== END 2021-06-25 11:30 | disposition home or self-care (01) ==
LOC: DI.N 11:29
PROVIDERS: ATTEND Internal Medicine
DX: M25.552 Pain in left hip (principal)

== ENCOUNTER 2021-06-25 13:37 | Outpatient (CLI) | payer MEDICARE, OTHER | END 2021-06-25 13:38 | disposition short-term general hospital (02) | LOC: EMS 13:37 | DX: S72.92XA Unspecified fracture of left femur, initial encounter for closed fracture (principal); W18.30XA Fall on same level, unspecified, initial encounter; Y92.009 Unspecified place in unspecified non-institutional (private) residence as the place of occurrence of the external cause | CPT/HCPCS: A0425; A0429 ==